=== PATIENT | male | born 1970 | race Caucasian/White ===

== ENCOUNTER 2020-09-03 11:15 | Emergency (ER) | payer OTHER ==
[~2020-09-03] VITALS: Ht 175.3 cm; Wt 63.5 kg
[2020-09-03] MEDS ORDERED: ELIMITE60 GM TOP (11:40)
[2020-09-03 11:44] VITALS: BP 152/102
== END 2020-09-03 11:45 | disposition home or self-care (01) ==
LOC: M.ERS 11:15
DX: Z71.1 Person with feared health complaint in whom no diagnosis is made (principal)